=== PATIENT | female | born 1975 | race African-American/Black ===

== ENCOUNTER 2021-12-21 11:21 | Emergency (ER) | payer OTHER ==
[~2021-12-21] VITALS: Ht 167.6 cm; Wt 63.5 kg
[2021-12-21 11:23] VITALS: BP 132/89
[2021-12-21] MEDS ORDERED: AMOX TR-K CLV1 EAC4 PO (11:44)
== END 2021-12-21 11:52 | disposition home or self-care (01) ==
LOC: ER 11:21 → EDBD 11:21 → ER 11:52
PROVIDERS: Student in an Organized Health Care Education/Training Program
DX: J32.9 Chronic sinusitis, unspecified (principal); Z20.822 Contact with and (suspected) exposure to COVID-19; F32.9 Major depressive disorder, single episode, unspecified